=== PATIENT | female | born 1990 | race African-American/Black ===

== ENCOUNTER → 2020-03-11 | Outpatient (CLI) | payer MEDICAID ==
--- NOTE | 2020-03-11 15:00 | RADIOLOGY REPORT (SQ) ---
EXAM DESCRIPTION: U/S [id number] TRNABD 1GES W/ODOP IMAGES COMPLETED DATE/TIME: 03/11/2020 1:15 pm REASON FOR STUDY: ENCTR FOR SUPERVISION OF OTHER NORMAL , 1ST TRIMESTER (Z34.81) Z34.81 EN COUNTER FOR SUPRVSN OF NORMAL , FIRST TRIM COMPARISON: None. TECHNIQUE: Transabdominal static and realtime grayscale images acquired of the pelvis. Additional se lected spectral and color Doppler images recorded. All images [facility] PAC[facility]. [facility] available. CLINICAL DATES: LMP 12/26/2019. WILDA based on LMP 10/01/2020. EGA based on LMP 10 weeks 6 days LIMITATIONS: None. FINDINGS: FETUS: Single Living intrauterine . ULTRASOUND EGA: 11 weeks 0 days. ULTRASOUND WILDA: 09/30/2020. CRL: 4.1 cm FHR: 163 beats per minute. SURVEY: Too early to assess. AMNIOTIC FLUID: Toe early to assess. PLACENTA: Too early to assess. SUBCHORIONIC BLEED: Yes. SIZE OF BLEED: 1.5 x 0.6 x 0.3 cm. UTERUS: The uterus measures 9.4 x 8.4 x 7 cm. CERVICAL LENGTH: 2.2 cm. Closed. RIGHT ADNEXA: The right ovary measures 4 x 2.8 x 3.1 cm and on Doppler there is intact color flow wit hin the ovarian stroma. LEFT ADNEXA: The left ovary measures 2.4 x 2.4 x 2.5 cm and on color Doppler there is intact color fl ow within the ovarian stroma. FREE FLUID: None. OTHER: No other finding. IMPRESSION: LIVE INTRAUTERINE . EGA 10 weeks 6 days based on the LMP with concordant biometric parameters. MINISCULE SUBCHORIONIC HEMORRHAGE THAT MEASURES 1.5 x 0.6 x 0.3 cm. Trimester of : First trimester - 0 to 13 weeks. TECHNICAL DOCUMENTATION: JOB ID: [id number] 2010 [employer]- All Rights Reserved rev Reading location - IP/workstation name: [email or web address]
== END ==
LOC: RAD 12:46
PROVIDERS: ATTEND Midwife
DX: O20.9 Hemorrhage in early pregnancy, unspecified (principal); Z3A.10 10 weeks gestation of pregnancy
CPT/HCPCS: 76801

== ENCOUNTER 2020-08-14 15:53 | Inpatient (IN) | payer MEDICAID ==
[~2020-08-14 15:53] MED LIST: SUCCINYLCHOLINE CHLORIDE INJ 200 MG/10 ML VIAL ONE
[2020-08-14] MEDS ORDERED: NORMAL SALINE 250 ML IV PRN (15:56)
[2020-08-14] MEDS ORDERED: SUCCINYLCHOLINE CHLORIDE INJ 200 MG/10 ML VIAL ONE (16:18)
[2020-08-14] MEDS ORDERED: PROPOFOL INJ 200 MG/20 ML VIAL IV ONE (16:18)
[2020-08-14] MEDS ORDERED: CITRIC ACID/SODIUM CITRATE ORAL SOLN 15 ML UDCUP ONE (16:18)
[2020-08-14] MEDS ORDERED: FENTANYL CITRATE INJ/PF 100 MCG/2 ML AMPUL ONE ×2 (16:18→19:46)
[2020-08-14] MEDS ORDERED: CEFAZOLIN 2 GM/D5W RTU 2 GM/50 ML RTUPB IV ONE (16:19)
[2020-08-14] MEDS ORDERED: MISOPROSTOL 0.2 MG TABLET ONE ×2 (16:35→18:54)
[2020-08-14] MEDS ORDERED: CARBOPROST TROMETHAMINE INJ 250 MCG/1 ML AMPULE ONE ×2 (16:36→18:55)
[2020-08-14] MEDS ORDERED: OXYTOCIN/0.9 % SODIUM CHLORIDE 30 UNIT/500 ML RTUINJ ONE (16:36)
[2020-08-14] MEDS ORDERED: METHYLERGONOVINE MALEATE INJ/PF 0.2 MG/1 ML AMPULE ONE ×2 (16:36→18:55)
[2020-08-14] MEDS ORDERED: KETOROLAC TROMETHAMINE 60 MG/2 ML SDV ONE (16:45)
[2020-08-14] MEDS ORDERED: ONDANSETRON HCL INJ/PF 4 MG/2 ML SDV ONE (16:45)
[2020-08-14] MEDS ORDERED: OXYTOCIN 10 UNIT/ML VIAL ONE (16:46)
--- NOTE | 2020-08-14 16:53 | RADIOLOGY REPORT (SQ) ---
EXAM DESCRIPTION: U/S OB LIMITED IMAGES COMPLETED DATE/TIME: 08/14/2020 4:34 pm REASON FOR STUDY: possible placental abruption no heart tones COMPARISON: 03/11/2020 TECHNIQUE: Limited transabdominal grayscale ultrasound for evaluation of specific requested obstetri patricia parameters. LIMITATIONS: None. FINDINGS: Limited Ob ultrasound performed. No heart activity could be demonstrated. Very het erogeneous material between the placenta or within the placenta and fetus. Oligohydramnios. IMPRESSION: No heart tones could be identified. Findings are consistent with demise. [facility] was aware of the findings. Trimester of : Third trimester - 28 weeks to delivery. TECHNICAL DOCUMENTATION: JOB ID: [id number] 2010 [employer]- All Rights Reserved Reading location - IP/workstation name: [email or web address]
[2020-08-14 16:54] LABS: ALBUMIN 3.8 g/dL (3.5-5.0); ALKALINE PHOSPHATASE 169 U/L (38-126); ANION GAP 12 (5-19); ASPARTATE AMINO TRANSFERASE 77 U/L (14-36); BILIRUBIN,DIRECT 0.7 mg/dL (0.0-0.4); BILIRUBIN,TOTAL 4.8 mg/dL (0.2-1.3); BLOOD UREA NITROGEN 14 mg/dL (7-20); CALCIUM 9.5 mg/dL (8.4-10.2); CARBON DIOXIDE 17 mmol/L (22-30); CHLORIDE 106 mmol/L (98-107); GLUCOSE 95 mg/dL (75-110); POTASSIUM 4.7 mmol/L (3.6-5.0); URIC ACID 5.1 mg/dL (2.5-6.2)
[2020-08-14 17:09] LABS: APPEARANCE,URINE CLOUDY; BILIRUBIN,URINE NEGATIVE (NEGATIVE); COLOR,URINE RED; GLUCOSE, URINE 50 mg/dL (NEGATIVE); KETONES,URINE NEGATIVE (NEGATIVE); LEUKOCYTE ESTERASE,URINE NEGATIVE (NEGATIVE); NITRITE,URINE NEGATIVE (NEGATIVE); PROTEIN,URINE 100 mg/dL (NEGATIVE); URINE SPECIFIC GRAVITY 1.027; UROBILINOGEN,URINE NEGATIVE mg/dL (<2.0)
[2020-08-14 17:11] LABS: URINE AMPHETAMINES SCREEN NEGATIVE; URINE BENZODIAZEPINES SCREEN NEGATIVE; URINE COCAINE SCREEN NEGATIVE; URINE METHADONE SCREEN NEGATIVE; URINE PHENCYCLIDINE SCREEN NEGATIVE
[2020-08-14 17:14] LABS: URINE BARBITURATES SCREEN UNCONFIRMED POSITIVE; URINE MARIJUANA (THC) SCREEN UNCONFIRMED POSITIVE
[2020-08-14] MEDS ORDERED: MAGNESIUM SULFATE 4 GM/100 ML RTUPB IV ONE (17:19)
[2020-08-14] MEDS ORDERED: MAGNESIUM SULFATE 0 GM/0 ML RTUINJ IV ONE (17:19)
[2020-08-14 17:44] LABS: FIBRINOGEN 740 mg/dL (209-497); INTERNATIONAL RATION (INR) 3.52
[2020-08-14 17:45] LABS: HEMATOCRIT 17.2 % (36.0-47.0); MEAN CORPUSCULAR HEMOGLOBIN 33.2 pg (27.0-33.4); MEAN CORPUSCULAR HGB CONC 34.4 g/dL (32.0-36.0); MEAN CORPUSCULAR VOLUME 97 fl (80-97); PARTIAL THROMBOPLASTIN TIME 47.9 SEC (23.5-35.8); RED BLOOD COUNT 1.78 10^6/uL (3.72-5.28); RED CELL DISTRIBUTION WIDTH 13.3 % (11.5-14.0); WHITE BLOOD COUNT 19.9 10^3/uL (4.0-10.5)
--- NOTE | 2020-08-14 17:47 | Admission Physical ---
Datetime Report Generated by CPN: 08/14/2020 17:47 CURRENT ADMISSION Chief Complaint: Uterine Contractions; Vaginal Bleeding Indication for Induction: Not Applicable Admit Impression : , Intrauterine ; Primary Section; Demise; Obstetrical Complication; Medical Complication Admit Impression- Other: placental abruption Admit Plan: Admit to Unit; Initiate Section Protocol; Initiate Demise Protocol PHYSICAL EXAM General: Normal Heart: Normal Lungs: Normal Extremities: Normal DTRs: Normal Pelvic Type: Adequate Vital Signs: Reviewed Details Vital Signs: severe range FETUS A Monitoring: External US Admit Comment: 30yo @ 33w1d who presented to L_D via wheelchair from ED. Pt reports abdominal cramping this am which later turned into evan vaginal bleeding. Pt is A pos, RI, GBS unknown with uncomplicated except for hx of pre-e with last baby. Pt had baseline labs at transfer visit which were normal and also had repeat PIH labs on 08/06/20 when she presented to clinic for MITALI and had elevated BPs; those labs were also normal. On admission Dr. Browning was unable to obtain heart tones and stat sono was ordered which confirmed the demise. Heavy bleeding continued and the decision was made to perform a STAT . INFORMED CONSENT Assignment: Jacqueline Browning MD Signature: with User ID: Yuan : with User ID: [email or web address]
[2020-08-14] MEDS ORDERED: DEXTROSE 50%-WATER 25 GM/50 ML DISP.SYRIN IV PRN ×2 (17:56)
[2020-08-14] MEDS ORDERED: DEXTROSE 40% GEL 15 GM TUBE PO PRN ×2 (17:56)
[2020-08-14] MEDS ORDERED: DIPH/PERTUSS(ACELL)/TETANUS VAC/PF 0.5 ML SYR (>=10YO) IM PRN (17:56)
[2020-08-14] MEDS ORDERED: OXYCODONE-ACETAMINOPHEN 5-325 MG TABLET PO PRN ×2 (17:56)
[2020-08-14] MEDS ORDERED: ACETAMINOPHEN 1,000 MG/100 ML RTUPB IV PRN (17:56)
[2020-08-14] MEDS ORDERED: ACETAMINOPHEN 325 MG TABLET PO PRN (17:56)
[2020-08-14] MEDS ORDERED: RINGERS SOLUTION,LACTATED 1,000 ML IV PRN (17:56)
[2020-08-14] MEDS ORDERED: GLUCAGON,HUMAN RECOMB 1 MG INJ SUBCUT PRN (17:56)
[2020-08-14] MEDS ORDERED: SIMETHICONE 80 MG TAB.CHEW PO PRN (17:56)
[2020-08-14] MEDS ORDERED: PROMETHAZINE HCL INJ 25 MG/1 ML VIAL IV PRN (17:56)
[2020-08-14] MEDS ORDERED: MEASLES,MUMPS&RUBELLA VACC/PF 0.5 ML VIAL SUBCUT PRN (17:56)
[2020-08-14] MEDS ORDERED: OXYTOCIN/0.9 % SODIUM CHLORIDE 30 UNIT/500 ML RTUINJ IV PRN (17:56)
[2020-08-14] MEDS ORDERED: DOCUSATE SODIUM 100 MG CAPSULE PO SCH (18:00)
[2020-08-14 18:05] LABS: PLATELET COUNT 67 10^3/uL (150-450)
[2020-08-14] MEDS ORDERED: PHENYLEPHRINE HCL INJ/PF 10 MG/1 ML SDV ONE (18:23)
[2020-08-14] MEDS ORDERED: CALCIUM GLUC IN NACL ISO OSM IV ONE (18:32)
[2020-08-14] MEDS ORDERED: TRANEXAMIC ACID INJ/PF 1,000 MG/10 ML SDV ONE ×2 (18:52→18:55)
[2020-08-14 19:02] LABS: ABSOLUTE LYMPHOCYTES# (MANUAL) 1.6 10^3/uL (0.5-4.7); ABSOLUTE MONOCYTES # (MANUAL) 0.6 10^3/uL (0.1-1.4); BASOPHILS % (MANUAL) 0 % (0-2); EOSINOPHILS % (MANUAL) 0 % (0-6); LYMPHOCYTES % (MANUAL) 8 % (13-45); MONOCYTES % (MANUAL) 3 % (3-13); SEGMENTED NEUTROPHILS % (MAN) 89 % (42-78); TOTAL CELLS COUNTED 100
[2020-08-14 19:04] LABS: BURR CELLS SLIGHT; OVALOCYTES SLIGHT; POIKILOCYTOSIS SLIGHT; POLYCHROMASIA SLIGHT; SCHISTOCYTES SLIGHT; TOXIC GRANULATION SLIGHT
[2020-08-14 19:05] LABS: HEMOGLOBIN 5.9 g/dL (12.0-15.5); PLATELET COMMENT DECREASED; TEAR DROP CELLS SLIGHT
[2020-08-14 19:09] LABS: D-DIMER > 20.00 ug/mL (0.00-0.50)
[2020-08-14 19:18] LABS: ARTERIAL BLOOD BASE EXCESS -21.1 mmol/L; ARTERIAL BLOOD FIO2 6L; ARTERIAL BLOOD H2CO3 1.17 mmol/L (1.05-1.35); ARTERIAL BLOOD HCO3 9.1 mmol/L (20-24); ARTERIAL BLOOD O2 SATURATION 39.9 % (94-98); ARTERIAL BLOOD PCO2 38.9 mmHg (35-45); ARTERIAL BLOOD PH 6.99 (7.35-7.45); ARTERIAL BLOOD TOTAL CO2 10.3 mmol/L (21-25)
[2020-08-14] MEDS ORDERED: SODIUM BICARBONATE 8.4% INJ 50 MEQ/50 ML DISP.SYRIN ONE ×2 (19:20→19:21)
[2020-08-14] MEDS ORDERED: FENTANYL CITRATE INJ/PF 100 MCG/2 ML AMPUL IV ONE (19:45)
[2020-08-14] MEDS ORDERED: NORMAL SALINE 1000 ML 1,000 ML IV PRN (19:50)
[2020-08-14 19:54] LABS: MEAN CORPUSCULAR HEMOGLOBIN 30.1 pg (27.0-33.4); PLATELET COUNT 119 10^3/uL (150-450); RED CELL DISTRIBUTION WIDTH 14.5 % (11.5-14.0); WHITE BLOOD COUNT 19.5 10^3/uL (4.0-10.5)
--- NOTE | 2020-08-14 20:04 | Operative Report ---
Bedside Procedure - History of Present Illness Indication for Procedure: DIC requiring rapid transfusion Provider: CONNER HERMOSILLO - Central Line Right Internal jugular Time completed: 19:15 Consent obtained: No - medical emergency Central line pre-insertion: Sterile PPE donned, Chloraprep applied, Sterile drapes applied Central line size (Fr.): 7 Central line lumen type: Triple Anesthetic type: 1% Lidocaine mL's of anesthesia: 2 Ultrasound guided: Yes Line secured with sutures: Yes Central line post-insertion: Blood return from lumens, Biopatch applied, Sutured, Sterile dressing applied, Position confirmed w/ CXR Number of attempts: 1 Complications: No
[2020-08-14 20:06] LABS: HEMOGLOBIN 10.6 g/dL (12.0-15.5); MEAN CORPUSCULAR VOLUME 91 fl (80-97)
[2020-08-14 20:12] LABS: ABSOLUTE LYMPHOCYTES# (MANUAL) 4.3 10^3/uL (0.5-4.7); BAND NEUTROPHILS % (MANUAL) 6 % (3-5); BASOPHILS % (MANUAL) 0 % (0-2); EOSINOPHILS % (MANUAL) 0 % (0-6); LYMPHOCYTES % (MANUAL) 22 % (13-45); MONOCYTES % (MANUAL) 10 % (3-13); NUCLEATED RED BLOOD CELLS 1 /100 WBC (0); SEGMENTED NEUTROPHILS % (MAN) 62 % (42-78); TOTAL CELLS COUNTED 100
[2020-08-14 20:16] LABS: ANISOCYTOSIS SLIGHT; BURR CELLS 1+; PLATELET COMMENT DECREASED; TEAR DROP CELLS SLIGHT
--- NOTE | 2020-08-14 20:16 | RADIOLOGY REPORT (SQ) ---
EXAM DESCRIPTION: XR CHEST 1 VIEW COMPLETED DATE/TME: 08/14/2020 00:00 CLINICAL HISTORY: 30 years Female central line placement COMPARISON: None. FINDINGS: The cardiomediastinal silhouette appears unremarkable. No consolidating infiltrates or pleural effusions. No pneumothorax. Right IJ catheter with the tip extending into the right atrium. This should be withdrawn withdrawn 2 to 3 cm for more adequate positioning. No pneumothorax is appreciated. IMPRESSION: Placement of a right IJ central venous line which extends into the right atrium. This needs to be withdrawn at least 2 to 3 cm for more optimal positioning
[2020-08-14 20:17] LABS: POLYCHROMASIA SLIGHT
[2020-08-14 20:18] LABS: POIKILOCYTOSIS SLIGHT
[2020-08-14 20:45] LABS: HEMATOCRIT 36.7 % (36.0-47.0); HEMOGLOBIN 12.5 g/dL (12.0-15.5); MEAN CORPUSCULAR HEMOGLOBIN 30.1 pg (27.0-33.4); MEAN CORPUSCULAR HGB CONC 34.1 g/dL (32.0-36.0); MEAN CORPUSCULAR VOLUME 88 fl (80-97); PLATELET COUNT 123 10^3/uL (150-450); RED BLOOD COUNT 4.15 10^6/uL (3.72-5.28); RED CELL DISTRIBUTION WIDTH 14.3 % (11.5-14.0); WHITE BLOOD COUNT 18.8 10^3/uL (4.0-10.5)
[2020-08-14 20:52] LABS: FIBRINOGEN 155 mg/dL (209-497)
[2020-08-14 21:10] LABS: ALBUMIN 3.1 g/dL (3.5-5.0); ALKALINE PHOSPHATASE 81 U/L (38-126); ANION GAP 13 (5-19); ASPARTATE AMINO TRANSFERASE 60 U/L (14-36); BILIRUBIN,DIRECT 2.5 mg/dL (0.0-0.4); BILIRUBIN,TOTAL 4.6 mg/dL (0.2-1.3); BLOOD UREA NITROGEN 14 mg/dL (7-20); CALCIUM 8.1 mg/dL (8.4-10.2); CARBON DIOXIDE 20 mmol/L (22-30); CHLORIDE 108 mmol/L (98-107); GLUCOSE 172 mg/dL (75-110); TOTAL PROTEIN 5.5 g/dL (6.3-8.2)
[2020-08-14 21:11] LABS: ABSOLUTE LYMPHOCYTES# (MANUAL) 1.3 10^3/uL (0.5-4.7); ABSOLUTE MONOCYTES # (MANUAL) 1.1 10^3/uL (0.1-1.4); BAND NEUTROPHILS % (MANUAL) 5 % (3-5); BASOPHILS % (MANUAL) 0 % (0-2); EOSINOPHILS % (MANUAL) 0 % (0-6); LYMPHOCYTES % (MANUAL) 7 % (13-45); MONOCYTES % (MANUAL) 6 % (3-13); SEGMENTED NEUTROPHILS % (MAN) 82 % (42-78); TOTAL CELLS COUNTED 100
[2020-08-14 21:13] LABS: ANISOCYTOSIS SLIGHT; BURR CELLS 1+; OVALOCYTES SLIGHT; PLATELET COMMENT DECREASED; TEAR DROP CELLS SLIGHT
[2020-08-14 21:16] LABS: POTASSIUM 5.8 mmol/L (3.6-5.0)
[2020-08-14 21:16] LABS: PARTIAL THROMBOPLASTIN TIME 82.7 SEC (23.5-35.8)
[2020-08-14 21:27] LABS: INTERNATIONAL RATION (INR) 1.23
[2020-08-14 21:28] LABS: PROTHROMBIN TIME 15.6 SEC (11.4-15.4)
[2020-08-14] MEDS ORDERED: CEFAZOLIN 1 GM/D5W RTU 1 GM/50 ML RTUPB IV SCH (22:00)
[2020-08-14 22:04] LABS: D-DIMER > 20.00 ug/mL (0.00-0.50)
[2020-08-14 22:14] VITALS: BP 119/82
--- NOTE | 2020-08-14 23:04 | Operative Report ---
Operative Report DATE OF SURGERY: 08/14/20 PREOPERATIVE DIAGNOSIS: Placental abrubtion. 32 weeks EGA Intrauterine pregnan cy-demise noted on admission. Elevated blood pressures on admisssion in severe range, possible Severe Preeclampsia. History of preeclampsia in G1 POSTOPERATIVE DIAGNOSIS: Same as above OPERATION: Primary section SURGEON: CHARLES PERRIN ANESTHESIA: GA TISSUE REMOVED OR ALTERED: Placenta, non-viable fetus COMPLICATIONS: No surgical complications ESTIMATED BLOOD LOSS: 2,000cc including dark clots in uterus and blood under patient QUANTITATIVE BLOOD LOSS: 2,170 INTRAOPERATIVE FINDINGS: Blood tinged serous fluid perineal fluid. Large amount of dark clotted blood in uterus. Couvelaire uterus noted PROCEDURE: IV fluids: per anesthesia record Urinary output: 50 cc of blood tinged urine (Urine was blood tinged with ziegler placed prior to OR) Findings: Blood tinged peritoneal fluid noted on opening the peritoneum. Large dark blood clots noted and active bleeding on hysterotomy incision. Placenta loose and coming out prior to infants head. INfant was vertex and non-viable. Baby had nuchal x1, delivered and handed off. Uterus had appearance of Coulevaire uterus with blue/black color. NOrmal bilateral fallopian tubes and ovaries. Position: To recovery room in stable Description of procedure: The patient was taken to the operating room and general anesthesia was administered and found to be adequate. She was then placed on the OR table in the supine position. Patient was prepped with betadine and draped in usual sterile fashion. Ancef 2 gms was given IV prior to the procedure for infection prophylaxis. Timeout was taken. A Pfannenstiel skin incision was then made approximately 3 cm above the pubic symphysis and carried down to level the rectus fascia. The rectus fascia was then nicked in the midline with a scalpel and the fascial incision was extended laterally with use of curved Oneil scissors. The rectus fascia was then grasped with 2 Kocker clamps elevated and the underlying rectus muscle was dissected off both bluntly and sharply. The rectus muscles were then split in the midline and the peritoneum was entered. The peritoneal incision was then extended by manually stretching the peritoneum. Blood tinged fluid noted. The bladder blade was positioned. The bladder was noted to be out of harm's way. A scalpel was then used in the lower uterine for the hysterotomy, and large dark clots, detached placenta were noted on entry. The uterine incision was then manually stretched. The infant was noted to be in vertex postion and delivered with minmal difficulty. The shoulders and the rest of the body followed immediately. The cord was cut clamped and the was handed off to the nurse awaiting. was non-viable. The placenta was manually delivered. Using a lap gauze the uterus was cleared of all clots and debris. Uterine atony encountered and Pitocin given along with Methergine IM injected into myometrium. The uterus was then exteriorized and a bladder blade was repositioned. The uterine incision was then closed with 0 Chromic suture in a running locked fashion. A second layer of the same suture was used in a running locked imbricated fashion. The uterine incision was inspected and oozing centrally. A box stitch x2 was placed. Hemostasis obtained. The uterus was returned to its normal anatomic position within the abdominal cavity. Warm saline irrigation was used to clear all clots and debris from the abdomen. The uterine incision was inspected once more and noted to remain hemostatic. The bladder blade was removed and the peritoneum was closed with 2-0 chromic in a running fashion. The rectus muscles were then reapproximated and the rectus fascia was closed with a #0 Looped PDS in a running fashion. The subcutaneous tissue was then inspected and during this oozing was noted between the sutures and the rectus fascia near the midline this appeared to be thin dark blood coming from below the fascia. Because of this the fascia was reopened along with the peritoneum. Dark thin blood was noted but no active bleeding could be found. The uterine incision did appear oozy intermittently and because of this a Gelfoam was placed over the uterine incision. This obtained hemostasis. The rectus muscles and remaining tissue inspected and no active bleeding noted. The rectus fascia was then closed again with 0 looped PDS in a running fashion. The subcutaneous tissue was then closed with 2-0 Plain Gut suture in a running fashion. The skin was then closed with 4-0 Monocryl in a running subcuticular fashion. The skin incision was then clean dried and Steri- Strips were applied over the skin incision. A pressure dressing with dry gauze was applied. The drape was taken down at the end of the procedure blood was noted between the patient's legs to the level of her ankles on the pads beneath her. Uterine massage was done and approximately 30 cc of blood was noted. No further trickling after fundal rub. At this time total blood loss was estimated at 2 liters and two units PRBC were ordered: anesthesia to administer. Vital signs stable at this time. All instrument sponge and needle counts were correct x3 for the procedure the patient tolerated the procedure well. She will proceed to recovery room in stable condition
--- NOTE | 2020-08-14 23:30 | PDOC DELIVERY SUMMARY ---
Delivery Summary - Maternal Hx : II Hx Para: I Hx # Term Pregnancies: 0 Hx # Pregnancies: 1 Hx Total # of Abortions (Sponateous & Elective): 0 Number of Living Children: 1 Gestational Age: 32 weeks Risk Factors: Other - History of preeclampsia in G1 Elevated b/p x1 in office and PIH labs negative on 08/06/2020 Intrapartum: Abruption - Likely preeclampsia - Delivery Presentation: Vertex Heart Rate Monitoring: Externally - NO heart tones: Non-viability verifed by BSUS Support Person Present: Yes Location: OR : Emergency Placenta: Abnormal Placenta Description: Abruption with large portion of placenta abrupted-90%. Large amount of dark clotted blood around uterus Nuchal Cord: Yes - x1 Estimated Blood Loss: 2,000 Delivery Quantitative Blood Loss (QBL): 2,170 - Medications Type of Anesthesia:: GA - Delivery Medications Delivery Meds: Methergine 0.2mg IM - Given in myometrium, Pitocin 60 units given IV and cytotec per rectum after procedure finished - Delivery Personnel RN: ANDREEA VARGAS MD: CHARLES PERRIN
--- NOTE | 2020-08-15 03:22 | CRITICAL CARE ADMISSION REPORT ---
HPI Date:: 08/14/20 Time:: 19:00 Reason for ICU Reason:: post op hemorrhage Admission Date/Time & PCP: Admission Date/Time: 08/14/20 15:56 Primary Care Provider: MAGAN ORDONEZ MD HPI: 30 year old female who was 32 weeks and presented to [facility] labor and delivery with vaginal bleeding and pain. The patient was found to have an abruption and an emergency was performed by Dr. Browning. The patient began to hemorrhage post operatively and was transferred to the ICU. - Diagnosis/Plan (1) Abruptio placenta Qualifiers: Trimester: third trimester Qualified Code(s): O45.93 - Premature separation of placenta, unspecified, third trimester Is this a current diagnosis for this admission?: Yes (2) deliv NOS-unsp Is this a current diagnosis for this admission?: Yes (3) Hemorrhage Is this a current diagnosis for this admission?: Yes Past Medical History Medical History: None Cardiac Medical History: Reports: None Pulmonary Medical History: Reports: None EENT Medical History: Reports: None Neurological Medical History: Reports: None Endocrine Medical History: Reports: None Renal/ Medical History: Reports: None Malignancy Medical History: Reports: None GI Medical History: Reports: None Musculoskeltal Medical History: Reports: None Skin Medical History: Reports: None Psychiatric Medical History: Reports: None Traumatic Medical History: Reports: None Hematology: Reports: None Past Surgical History Past Surgical History: Reports: None Social/Family History - Social History Social History Note: 30 year old female who lives with her family denies any alcohol, tobacco use, or ilicit drug use. Lives with: Family Smoking Status: Unknown if Ever Smoked Hx Recreational Drug Use: No - Family History Family History: None - Medication/Allergies Home Medications: No122/Iron/Folic Acid [ Multi Tablet] 1 each PO DAILY 08/14/20 Allergies/Adverse Reactions: doxycycline Allergy (Verified 08/14/20 19:57) Review of Systems ROS unobtainable: Due to mental status Physical Exam Vital Signs: Temp Pulse Resp BP Pulse Ox 134 H 16 119/82 100 08/14/20 18:39 08/14/20 22:01 08/14/20 22:01 08/14/20 22:01 Intake & Output 08/13/20 08/14/20 08/15/20 06:59 06:59 06:59 Weight 63.7 kg Weight/Height Weight 63.7 kg Height 5 ft 2 in General appearance: PRESENT: severe distress, well-developed, well-nourished Head exam: PRESENT: atraumatic, normocephalic Eye exam: PRESENT: other. ABSENT: PERRLA Ear exam: PRESENT: TM's normal bilaterally Mouth exam: PRESENT: moist Teeth exam: PRESENT: other - teeth intact Throat exam: ABSENT: post pharyngeal erythema, tonsillar erythema, tonsillar exudate, tonsillogmegaly, other Neck exam: PRESENT: carotid bruit, JVD Respiratory exam: PRESENT: decreased breath sounds, tachypnea Cardiovascular exam: PRESENT: +S1, +S2 Pulses: PRESENT: normal carotid pulses, normal radial pulses GI/Abdominal exam: PRESENT: ascites Rectal exam: PRESENT: deferred, black stool Gentrourinary exam: PRESENT: indwelling catheter Extremities exam: ABSENT: calf tenderness, clubbing, full ROM, joint swelling, pedal edema, tenderness, +1 edema, +2 edema, other Musculoskeletal exam: PRESENT: ambulatory Neurological exam: PRESENT: alert, awake Psychiatric exam: PRESENT: anxious Skin exam: ABSENT: abrasion, cyanosis, dry, erythema, intact, jaundice, mottled, normal color, pallor, petechiae, rash, skin tears, urticaria, vesicles, warm, other Laboratory/Radiographs Laboratory Results: 08/14/20 20:15 08/14/20 20:15 08/14/20 08/14/20 08/14/20 16:25 16:26 16:26 WBC Cancelled RBC Cancelled Hgb Cancelled Hct Cancelled MCV Cancelled MCH Cancelled MCHC Cancelled RDW Cancelled Plt Count Cancelled Seg Neutrophils % Cancelled Carbonic Acid HCO3/H2CO3 Ratio ABG pH ABG pCO2 ABG pO2 ABG HCO3 ABG O2 Saturation ABG Base Excess VBG pH VBG pCO2 VBG HCO3 VBG Base Excess FiO2 Sodium Potassium Chloride Carbon Dioxide Anion Gap BUN Creatinine Est GFR ( Amer) Glucose Uric Acid Calcium Magnesium Total Bilirubin AST Alkaline Phosphatase Total Protein Albumin Urine Color RED Urine Appearance CLOUDY Urine pH 5.0 Ur Specific Napoleon 1.027 Urine Protein 100 H Urine Glucose (UA) 50 H Urine Ketones NEGATIVE Urine Blood LARGE H Urine Nitrite NEGATIVE Ur Leukocyte Esterase NEGATIVE Blood Type A POSITIVE Antibody Screen NEGATIVE 08/14/20 08/14/2020 16:26 17:25 19:14 WBC 19.9 H RBC 1.78 L Hgb 5.9 L Hct 17.2 L MCV 97 MCH 33.2 MCHC 34.4 RDW 13.3 Plt Count 67 L Seg Neutrophils % Not Reportable Carbonic Acid 1.17 HCO3/H2CO3 Ratio 7:1 ABG pH 6.99 L* ABG pCO2 38.9 ABG pO2 34.0 L* ABG HCO3 9.1 L ABG O2 Saturation 39.9 L ABG Base Excess -21.1 VBG pH VBG pCO2 VBG HCO3 VBG Base Excess FiO2 6L Sodium 135.0 L Potassium 4.7 Chloride 106 Carbon Dioxide 17 L Anion Gap 12 BUN 14 Creatinine 1.37 H Est GFR ( Amer) 55 L Glucose 95 Uric Acid 5.1 Calcium 9.5 Magnesium Total Bilirubin 4.8 H AST 77 H Alkaline Phosphatase 169 H Total Protein 7.0 Albumin 3.8 Urine Color Urine Appearance Urine pH Ur Specific Napoleon Urine Protein Urine Glucose (UA) Urine Ketones Urine Blood Urine Nitrite Ur Leukocyte Esterase Blood Type Antibody Screen 08/14/20 08/14/20 08/14/20 19:33 20:15 20:15 WBC 19.5 H 18.8 H RBC 3.50 L 4.15 Hgb 10.6 L D 12.5 Hct 32.0 L 36.7 MCV 91 D 88 MCH 30.1 30.1 MCHC 33.0 34.1 RDW 14.5 H 14.3 H Plt Count 119 L 123 L Seg Neutrophils % Not Reportable Not Reportable Carbonic Acid HCO3/H2CO3 Ratio ABG pH ABG pCO2 ABG pO2 ABG HCO3 ABG O2 Saturation ABG Base Excess VBG pH Cancelled VBG pCO2 Cancelled VBG HCO3 Cancelled VBG Base Excess Cancelled FiO2 Sodium Potassium Chloride Carbon Dioxide Anion Gap BUN Creatinine Est GFR ( Amer) Glucose Uric Acid Calcium Magnesium Total Bilirubin AST Alkaline Phosphatase Total Protein Albumin Urine Color Urine Appearance Urine pH Ur Specific Napoleon Urine Protein Urine Glucose (UA) Urine Ketones Urine Blood Urine Nitrite Ur Leukocyte Esterase Blood Type Antibody Screen 08/14/20 20:15 WBC RBC Hgb Hct MCV MCH MCHC RDW Plt Count Seg Neutrophils % Carbonic Acid HCO3/H2CO3 Ratio ABG pH ABG pCO2 ABG pO2 ABG HCO3 ABG O2 Saturation ABG Base Excess VBG pH VBG pCO2 VBG HCO3 VBG Base Excess FiO2 Sodium 140.5 Potassium 5.8 H D Chloride 108 H Carbon Dioxide 20 L Anion Gap 13 BUN 14 Creatinine 1.09 Est GFR ( Amer) > 60 Glucose 172 H Uric Acid Calcium 8.1 L Magnesium 1.5 L Total Bilirubin 4.6 H AST 60 H Alkaline Phosphatase 81 Total Protein 5.5 L Albumin 3.1 L Urine Color Urine Appearance Urine pH Ur Specific Napoleon Urine Protein Urine Glucose (UA) Urine Ketones Urine Blood Urine Nitrite Ur Leukocyte Esterase Blood Type Antibody Screen Impressions: Chest X-Ray 08/14/20 00:00 IMPRESSION: Placement of a right IJ central venous line which extends into the right atrium. This needs to be withdrawn at least 2 to 3 cm for more optimal positioning Obstetrics Ultrasound 08/14/20 00:00 IMPRESSION: No heart tones could be identified. Findings are consistent with demise. Referring physician was aware of the findings. Trimester of : Third trimester - 28 weeks to delivery. Critical Time Critical Time (minutes): 45 -: The care of a critically ill patient is dynamic. This note represents a static moment in the admission process. Orders and treatments may be given simultaneously and urgently, and time is not sales representative of the treatment process. This patient requires Critical Care secondary to life threatening organ or limb dysfunction. Without Critical Care services, the patient is at risk for increased mortality and morbidity.
--- NOTE | 2020-08-15 05:29 | PDOC DISCHARGE SUMMARY ---
Impression - Admit/DC Date/PCP Admission Date/Primary Care Provider: 08/14/20 15:56 MAGAN ORDONEZ MD Discharge Date: 08/14/20 - Discharge Diagnosis (1) Abruptio placenta Is this a current diagnosis for this admission?: Yes (2) deliv NOS-unsp Is this a current diagnosis for this admission?: Yes (3) Hemorrhage Is this a current diagnosis for this admission?: Yes - Additional Information Resuscitation Status: Full Code Discharge Diet: As Tolerated Referrals: MAGAN ORDONEZ MD [Primary Care Provider] - Home Medications: No122/Iron/Folic Acid [ Multi Tablet] 1 each PO DAILY 08/14/20 History of Present Illiness History of Present Illness: 30 year old female who was 32 weeks and presented to [place] labor and delivery with vaginal bleeding and pain. The patient was found to have an abruption and an emergency was performed by Dr. Browning. The patient began to hemorrhage post operatively and was transferred to the ICU. Hospital Course Hospital Course: 30 year old female who was 32 weeks and presented to [facility] labor and delivery with vaginal bleeding and pain. The patient was found to have an abruption and an emergency was performed by Dr. Browning. The patient began to hemorrhage post operatively and was transferred to the ICU. The patient was stablized in the ICU and the EDUCATIONAL THERAPY TEACHER team felt it best that she be transferred to [facility] and Dr. Browning arranged the transfer with an accepting physician there. The patient was transferred at 2223 by ground transport. Physical Exam Vital Signs: Temp Pulse Resp BP Pulse Ox 134 H 22 H 119/82 100 08/14/20 18:39 08/14/20 22:13 08/14/20 22:01 08/14/20 22:01 Intake & Output 08/13/20 08/14/20 08/15/20 06:59 06:59 06:59 Weight 63.7 kg General appearance: PRESENT: mild distress Head exam: PRESENT: atraumatic, normocephalic Eye exam: PRESENT: EOMI, PERRLA Ear exam: PRESENT: normal external ear exam Mouth exam: PRESENT: dry mucosa Neck exam: PRESENT: full ROM. ABSENT: tracheal deviation Respiratory exam: PRESENT: symmetrical, unlabored Cardiovascular exam: PRESENT: +S1, +S2, tachycardia - rate 113 Pulses: PRESENT: normal carotid pulses, normal radial pulses Vascular exam: PRESENT: normal capillary refill GI/Abdominal exam: PRESENT: hypoactive bowel sounds, tenderness - post Rectal exam: PRESENT: deferred Gentrourinary exam: PRESENT: indwelling catheter Extremities exam: PRESENT: full ROM Musculoskeletal exam: PRESENT: full ROM Neurological exam: PRESENT: alert, oriented to person, oriented to place, oriented to time, oriented to situation, CN II-XII grossly intact Skin exam: PRESENT: dry, warm. ABSENT: rash Results Laboratory Results: WBC 18.8 10^3/uL (4.0-10.5) H 08/14/20 20:15 RBC 4.15 10^6/uL (3.72-5.28) 08/14/20 20:15 Hgb 12.5 g/dL (12.0-15.5) 08/14/20 20:15 Hct 36.7 % (36.0-47.0) 08/14/20 20:15 MCV 88 fl (80-97) 08/14/20 20:15 MCH 30.1 pg (27.0-33.4) 08/14/20 20:15 MCHC 34.1 g/dL (32.0-36.0) 08/14/20 20:15 RDW 14.3 % (11.5-14.0) H 08/14/20 20:15 Plt Count 123 10^3/uL (150-450) L 08/14/20 20:15 Lymph % (Auto) Not Reportable 08/14/20 20:15 [place] % (Auto) Not Reportable 08/14/20 20:15 Eos % (Auto) Not Reportable 08/14/20 20:15 Baso % (Auto) Not Reportable 08/14/20 20:15 Absolute Neuts (auto) Not Reportable 08/14/20 20:15 Absolute Lymphs (auto) Not Reportable 08/14/20 20:15 Absolute Monos (auto) Not Reportable 08/14/20 20:15 Absolute Eos (auto) Not Reportable 08/14/20 20:15 Absolute Basos (auto) Not Reportable 08/14/20 20:15 Total Counted 100 08/14/20 20:15 Seg Neutrophils % Not Reportable 08/14/20 20:15 Seg Neuts % (Manual) 82 % (42-78) H 08/14/20 20:15 Band Neutrophils % 5 % (3-5) 08/14/20 20:15 Lymphocytes % (Manual) 7 % (13-45) L 08/14/20 20:15 Monocytes % (Manual) 6 % (3-13) 08/14/20 20:15 Eosinophils % (Manual) 0 % (0-6) 08/14/20 20:15 Basophils % (Manual) 0 % (0-2) 08/14/20 20:15 Abs Neuts (Manual) 16.4 10^3/uL (1.7-8.2) H 08/14/20 20:15 Abs Lymphs (Manual) 1.3 10^3/uL (0.5-4.7) 08/14/20 20:15 Abs Monocytes (Manual) 1.1 10^3/uL (0.1-1.4) 08/14/20 20:15 Absolute Eos (Manual) 0.0 10^3/uL (0.0-0.6) 08/14/20 20:15 Abs Basophils (Manual) 0.0 10^3/uL (0.0-0.2) 08/14/20 20:15 Nucleated RBCs 1 /100 WBC (0) 08/14/20 19:33 Toxic Granulation SLIGHT 08/14/20 17:25 Platelet Estimate Cancelled 08/14/20 16:26 Platelet Comment DECREASED 08/14/20 20:15 Polychromasia SLIGHT 08/14/20 19:33 Poikilocytosis SLIGHT 08/14/20 19:33 Anisocytosis SLIGHT 08/14/20 20:15 Tear Drop Cells SLIGHT 08/14/20 20:15 Ovalocytes SLIGHT 08/14/20 20:15 Sofy Cells 1+ 08/14/20 20:15 Schistocytes SLIGHT 08/14/20 17:25 PT 15.6 SEC (11.4-15.4) H D 08/14/20 20:40 INR 1.23 08/14/20 20:40 INR (Anticoag Therapy) Cancelled 08/14/20 16:26 APTT 82.7 SEC (23.5-35.8) H 08/14/20 20:40 Fibrinogen 155 mg/dL (209-497) L 08/14/20 20:15 D-Dimer > 20.00 ug/mL (0.00-0.50) H* 08/14/20 20:15 Carbonic Acid 1.17 mmol/L (1.05-1.35) 08/14/20 19:14 HCO3/H2CO3 Ratio 7:1 08/14/20 19:14 ABG pH 6.99 (7.35-7.45) L* 08/14/20 19:14 ABG pCO2 38.9 mmHg (35-45) 08/14/20 19:14 ABG pO2 34.0 mmHg (80-100) L* 08/14/20 19:14 ABG HCO3 9.1 mmol/L (20-24) L 08/14/20 19:14 ABG Total CO2 10.3 mmol/L (21-25) L 08/14/20 19:14 ABG O2 Saturation 39.9 % (94-98) L 08/14/20 19:14 ABG Base Excess -21.1 mmol/L 08/14/20 19:14 VBG pH Cancelled 08/14/20 20:15 VBG pCO2 Cancelled 08/14/20 20:15 VBG HCO3 Cancelled 08/14/20 20:15 VBG Base Excess Cancelled 08/14/20 20:15 FiO2 6L 08/14/20 19:14 Sodium 140.5 mmol/L (137-145) 08/14/20 20:15 Potassium 5.8 mmol/L (3.6-5.0) H D 08/14/20 20:15 Chloride 108 mmol/L (98-107) H 08/14/20 20:15 Carbon Dioxide 20 mmol/L (22-30) L 08/14/20 20:15 Anion Gap 13 (5-19) 08/14/20 20:15 BUN 14 mg/dL (7-20) 08/14/20 20:15 Creatinine 1.09 mg/dL (0.52-1.25) 08/14/20 20:15 Est GFR ( Amer) > 60 (>60) 08/14/20 20:15 Est GFR (MDRD) Non-Af 59 (>60) L 08/14/20 20:15 Glucose 172 mg/dL (75-110) H 08/14/20 20:15 Uric Acid 5.1 mg/dL (2.5-6.2) 08/14/20 16:26 Calcium 8.1 mg/dL (8.4-10.2) L 08/14/20 20:15 Magnesium 1.5 mg/dL (1.6-2.3) L 08/14/20 20:15 Total Bilirubin 4.6 mg/dL (0.2-1.3) H 08/14/20 20:15 Direct Bilirubin 2.5 mg/dL (0.0-0.4) H 08/14/20 20:15 Neonat Total Bilirubin Not Reportable 08/14/20 20:15 Neonat Direct Bilirubin Not Reportable 08/14/20 20:15 Neonat Indirect Bili Not Reportable 08/14/20 20:15 AST 60 U/L (14-36) H 08/14/20 20:15 ALT 28 U/L (<35) 08/14/20 20:15 Alkaline Phosphatase 81 U/L (38-126) 08/14/20 20:15 Lactate Dehydrogenase 1278 U/L (120-246) H 08/14/20 16:26 Total Protein 5.5 g/dL (6.3-8.2) L 08/14/20 20:15 Albumin 3.1 g/dL (3.5-5.0) L 08/14/20 20:15 Urine Color RED 08/14/20 16:25 Urine Appearance CLOUDY 08/14/20 16:25 Urine pH 5.0 (5.0-9.0) 08/14/20 16:25 Ur Specific [place] 1.027 08/14/20 16:25 Urine Protein 100 mg/dL (NEGATIVE) H 08/14/20 16:25 Urine Glucose (UA) 50 mg/dL (NEGATIVE) H 08/14/20 16:25 Urine Ketones NEGATIVE mg/dL (NEGATIVE) 08/14/20 16:25 Urine Blood LARGE (NEGATIVE) H 08/14/20 16:25 Urine Nitrite NEGATIVE (NEGATIVE) 08/14/20 16:25 Urine Bilirubin NEGATIVE (NEGATIVE) 08/14/20 16:25 Urine Urobilinogen NEGATIVE mg/dL (<2.0) 08/14/20 16:25 Ur Leukocyte Esterase NEGATIVE (NEGATIVE) 08/14/20 16:25 Urine Ascorbic Acid NEGATIVE (NEGATIVE) 08/14/20 16:25 Urine Opiates Screen NEGATIVE 08/14/20 16:25 Urine Methadone Screen NEGATIVE 08/14/20 16:25 Ur Barbiturates Screen UNCONFIRMED POSITIVE 08/14/20 16:25 Ur Phencyclidine Scrn NEGATIVE 08/14/20 16:25 Ur Amphetamines Screen NEGATIVE 08/14/20 16:25 U Benzodiazepines Scrn NEGATIVE 08/14/20 16:25 Urine Cocaine Screen NEGATIVE 08/14/20 16:25 U Marijuana (THC) Screen UNCONFIRMED POSITIVE 08/14/20 16:25 Slides for Path Review Cancelled 08/14/20 16:26 Blood Type A POSITIVE 08/14/20 16:26 Blood Type Confirm A POSITIVE 08/14/20 16:27 Antibody Screen NEGATIVE 08/14/20 16:26 Crossmatch See Detail 08/14/20 16:26 Mass Transfus Initiated MTP INITIATED 08/14/20 18:14 Mass Transfus Discontin MTP DISCONTINUED 08/14/20 18:14 Impressions: Chest X-Ray 08/14/20 00:00 IMPRESSION: Placement of a right IJ central venous line which extends into the right atrium. This needs to be withdrawn at least 2 to 3 cm for more optimal positioning Obstetrics Ultrasound 08/14/20 00:00 IMPRESSION: No heart tones could be identified. Findings are consistent with demise. Referring physician was aware of the findings. Trimester of : Third trimester - 28 weeks to delivery. Plan Critical Time: 55 Level of Care: ICU Stroke Is this a Stroke Patient?: No Acute Heart Failure Is this a Heart Failure Patient?: No
[2020-08-15] MEDS ORDERED: SODIUM BICARBONATE 8.4% INJ 50 MEQ/50 ML DISP.SYRIN IV ONE (05:42)
[2020-08-15] MEDS ORDERED: DEXTROSE 5%-WATER 1000 ML 1,000 ML with SODIUM BICARBONATE 150 MEQ IV PRN ×2 (05:43)
[2020-08-15] MEDS ORDERED: PRENATAL VITAMIN W DHA CAPSULE PO SCH (10:00)
[2020-08-15] MEDS ORDERED: NORMAL SALINE 1000 ML 1,000 ML IV ONE (19:10)
--- NOTE | 2020-08-19 01:07 | Delivery Summary ---
Del Sum A-C Datetime Report Generated by CPN: 08/19/2020 01:07 DELIVERY PERSONNEL DELIVERY PERSONNEL: [id number] Delivery Doctor:: Jacqueline Browning MD (Annotations: Data stored by CPN on behalf of user) CARD FOLDER:: Rozina Villavicencio CRNA Labor and Delivery Nurse:: Re Krishna RN School Psychologist:: Lester Levy RN (Annotations: Data stored by CPN on behalf of user) Floor Framer/MEAT CURER: ST Brissa (Annotations: Data stored by CPN on behalf of user) Floor Framer/MEAT CURER: Shyanne Jay CST (Annotations: Data stored by CPN on behalf of user) Additional Personnel: : LALO Sotelo, Josep,XIAO and XIAO Benson MATERNAL INFORMATION Delivery Anesthesia: General Medications After Delivery: Pitocin 30 Units in 500ml NS/D5W Delivery QBL Comment: 2169 mls see QBL record Maternal Complications: Abruptio Placenta; Hemorrhage LABOR SUMMARY EDC: 10/01/2020 00:00 No. Babies in Womb: 1 Attempted: No Labor Anesthesia: None LABOR INFORMATION Reason for Induction: Not Applicable Oxytocin: N/A Group B Beta Strep: Uknown Steroids Given: None Reason Steroids Not Administered: Not Applicable MEMBRANES Membranes Rupture Method: Artificial Rupture of Membranes: 08/14/2020 16:36 Length of Rupture (hr): 0.02 Amniotic Fluid Color: Bloody Amniotic Fluid Amount: Moderate Amniotic Fluid Odor: Normal STAGES OF LABOR Stage 3 hr: 0 Stage 3 min: 0 VAGINAL DELIVERY Episiotomy: None Laceration #1: None Sponge Count Correct: N/A Sharps Count Correct: N/A CSECTION DELIVERY Primary Indication: Abruptio Placenta CSection Urgency: Emergency CSection Incidence: Primary Labor: N/A Elective: N/A CSection Incision: Lower Uterine Transverse BABY A INFORMATION Delivery Date/Time: 08/14/2020 16:37 Method of Delivery: Born in Route : No : N/A Forceps: N/A Vacuum Extraction: N/A Shoulder Dystocia : No PRESENTATION/POSITION BABY A Presentation: Cephalic Cephalic Presentation: Vertex Breech Presentation: N/A PLACENTA INFORMATION BABY A Placenta Delivery Time : 08/14/2020 16:37 Placenta Method of Delivery: Manual Removal Placenta Status: Delivered INFORMATION BABY A Gestational Age at Delivery: 33.1 Gestational Status: - <34 Weeks Infant Outcome : Stillborn Infant Sex: Male CORD INFORMATION BABY A Infant Suction: None ASSESSMENT BABY A Skin to Skin Time (min): N/A BABY B INFORMATION : N/A
--- NOTE | 2020-08-19 01:07 | Birth Certificate Data ---
Cert Data Datetime Report Generated by CPN: 08/19/2020 01:07 CERTIFICATE DATA 47a. Care: Yes (08/14/2020 18:05:Francesca Arellano RN) 48a. Number of Prev Live Births: 1 (08/14/2020 18:05:Francesca Arellano RN) 48b. Now Livin (08/14/2020 18:05:Francesca Arellano RN) 48c. Live Births Now : 0 (08/14/2020 18:05:QS system process) RISK FACTORS IN THIS 49c. Previous Births: 1 (08/14/2020 18:05:Francesca Arellano RN) 49f. Previous Cesareans: 0 (08/14/2020 18:05:Lester Levy, RN) Infections Present/Treated Results this Hospital Visit: NONREACTIVE (08/14/2020 16:26:QS system process) 53h. Mother Tested for HBsAG: Yes (08/14/2020 18:05:Lester Levy, RN) Onset of Labor 56a. PROM >12 Hrs: 0.02 (08/14/2020 18:05:QS system process) 57a. Induction of Labor: N/A (08/14/2020 18:05:Lester Levy RN) 57c. Non-Vertex Presentation A: Vertex (08/14/2020 18:05:Lester Levy RN) 57d. Steroids - Lung Mat: None (08/14/2020 18:05:Lester Levy RN) 57d. Steroids - Lung Mat: Not Applicable (08/14/2020 18:05:Lester Levy RN) 57g. Moderate/Heavy Meconium: Bloody (08/14/2020 18:05:Lester Levy RN) 57h. Intolerance of Labor: Abruptio Placenta (08/14/2020 18:05:Lester Levy RN) 57i. Epidural/Spinal Anesthesia: None (08/14/2020 18:05:Lester Levy RN) Method of Delivery 58a. Forceps - Unsuccessful A: N/A (08/14/2020 18:05:Lester Levy RN) 58b. Vacuum - Unsuccessful A: N/A (08/14/2020 18:05:Lester Levy RN) 58c. Presentation at 58c. Presentation at - A : Vertex (08/14/2020 18:05:Lester Levy RN) 58c. Presentation at - A : N/A (08/14/2020 18:05:Lester Levy RN) 58c. Presentation at - A : Cephalic (08/14/2020 18:05:Lester Levy RN) Final Route and Method of Del 58d. Baby A Route/Delivery: (08/14/2020 18:05:Lester Levy RN) 58e. Trial of Labor Attempted: No (08/14/2020 18:05:Lester Levy RN) 58e. Trial of Labor Attempted A: N/A (08/14/2020 18:05:Lester Levy RN) 58e. Trial of Labor Attempted B: N/A (08/14/2020 18:05:Lester Levy RN) Maternal Morbidity 59b. 3rd or 4th Degree Lacs: None (08/14/2020 18:05:Lester Levy RN) 59b. 3rd or 4th Degree Lacs: N/A (08/14/2020 18:05:Lester Levy RN) 61. GA at Delivery Baby A: 33.1 (08/14/2020 18:05:Lester Levy RN) : - <34 Weeks (08/14/2020 18:05:QS system process)
--- NOTE | 2020-08-23 08:26 | PDOC DISCHARGE SUMMARY ---
Impression - Admit/DC Date/PCP Admission Date/Primary Care Provider: 08/14/20 15:56 MAGAN ORDONEZ MD Discharge Date: 08/15/20 - Discharge Diagnosis (1) Chorioamnionitis in third trimester Is this a current diagnosis for this admission?: Yes - Additional Information Resuscitation Status: Full Code Discharge Diet: As Tolerated Discharge Activity: Activity As Tolerated - agree with pathology report of chorioamnionitis Referrals: MAGAN ORDONEZ MD [Primary Care Provider] - Home Medications: No122/Iron/Folic Acid [ Multi Tablet] 1 each PO DAILY 08/14/20 History of Present Illiness History of Present Illness: KRISTAL HOOKER is a 30 year old female Hospital Course Hospital Course: 30 year old female who was 32 weeks and presented to [place] labor and delivery with vaginal bleeding and pain. The patient was found to have an abruption and an emergency was performed by Dr. Browning. The patient began to hemorrhage post operatively and was transferred to the ICU. The patient was stablized in the ICU and the KOSHER DIETARY SERVICE SUPERVISOR team felt it best that she be transferred to [facility] and Dr. Browning arranged the transfer with an accepting physician there. The patient was transferred at 2223 by ground transport. Physical Exam - Physical Exam Vital Signs: Temp Pulse Resp BP Pulse Ox 134 H 22 H 119/82 100 08/14/20 18:39 08/14/20 22:13 08/14/20 22:01 08/14/20 22:01 Results Laboratory Results: WBC 18.8 10^3/uL (4.0-10.5) H 08/14/20 20:15 RBC 4.15 10^6/uL (3.72-5.28) 08/14/20 20:15 Hgb 12.5 g/dL (12.0-15.5) 08/14/20 20:15 Hct 36.7 % (36.0-47.0) 08/14/20 20:15 MCV 88 fl (80-97) 08/14/20 20:15 MCH 30.1 pg (27.0-33.4) 08/14/20 20:15 MCHC 34.1 g/dL (32.0-36.0) 08/14/20 20:15 RDW 14.3 % (11.5-14.0) H 08/14/20 20:15 Plt Count 123 10^3/uL (150-450) L 08/14/20 20:15 Lymph % (Auto) Not Reportable 08/14/20 20:15 [place] % (Auto) Not Reportable 08/14/20 20:15 Eos % (Auto) Not Reportable 08/14/20 20:15 Baso % (Auto) Not Reportable 08/14/20 20:15 Absolute Neuts (auto) Not Reportable 08/14/20 20:15 Absolute Lymphs (auto) Not Reportable 08/14/20 20:15 Absolute Monos (auto) Not Reportable 08/14/20 20:15 Absolute Eos (auto) Not Reportable 08/14/20 20:15 Absolute Basos (auto) Not Reportable 08/14/20 20:15 Total Counted 100 08/14/20 20:15 Seg Neutrophils % Not Reportable 08/14/20 20:15 Seg Neuts % (Manual) 82 % (42-78) H 08/14/20 20:15 Band Neutrophils % 5 % (3-5) 08/14/20 20:15 Lymphocytes % (Manual) 7 % (13-45) L 08/14/20 20:15 Monocytes % (Manual) 6 % (3-13) 08/14/20 20:15 Eosinophils % (Manual) 0 % (0-6) 08/14/20 20:15 Basophils % (Manual) 0 % (0-2) 08/14/20 20:15 Abs Neuts (Manual) 16.4 10^3/uL (1.7-8.2) H 08/14/20 20:15 Abs Lymphs (Manual) 1.3 10^3/uL (0.5-4.7) 08/14/20 20:15 Abs Monocytes (Manual) 1.1 10^3/uL (0.1-1.4) 08/14/20 20:15 Absolute Eos (Manual) 0.0 10^3/uL (0.0-0.6) 08/14/20 20:15 Abs Basophils (Manual) 0.0 10^3/uL (0.0-0.2) 08/14/20 20:15 Nucleated RBCs 1 /100 WBC (0) 08/14/20 19:33 Toxic Granulation SLIGHT 08/14/20 17:25 Platelet Estimate Cancelled 08/14/20 16:26 Platelet Comment DECREASED 08/14/20 20:15 Polychromasia SLIGHT 08/14/20 19:33 Poikilocytosis SLIGHT 08/14/20 19:33 Anisocytosis SLIGHT 08/14/20 20:15 Tear Drop Cells SLIGHT 08/14/20 20:15 Ovalocytes SLIGHT 08/14/20 20:15 Sofy Cells 1+ 08/14/20 20:15 Schistocytes SLIGHT 08/14/20 17:25 PT 15.6 SEC (11.4-15.4) H D 08/14/20 20:40 INR 1.23 08/14/20 20:40 INR (Anticoag Therapy) Cancelled 08/14/20 16:26 APTT 82.7 SEC (23.5-35.8) H 08/14/20 20:40 Fibrinogen 155 mg/dL (209-497) L 08/14/20 20:15 D-Dimer > 20.00 ug/mL (0.00-0.50) H* 08/14/20 20:15 Carbonic Acid 1.17 mmol/L (1.05-1.35) 08/14/20 19:14 HCO3/H2CO3 Ratio 7:1 08/14/20 19:14 ABG pH 6.99 (7.35-7.45) L* 08/14/20 19:14 ABG pCO2 38.9 mmHg (35-45) 08/14/20 19:14 ABG pO2 34.0 mmHg (80-100) L* 08/14/20 19:14 ABG HCO3 9.1 mmol/L (20-24) L 08/14/20 19:14 ABG Total CO2 10.3 mmol/L (21-25) L 08/14/20 19:14 ABG O2 Saturation 39.9 % (94-98) L 08/14/20 19:14 ABG Base Excess -21.1 mmol/L 08/14/20 19:14 VBG pH Cancelled 08/14/20 20:15 VBG pCO2 Cancelled 08/14/20 20:15 VBG HCO3 Cancelled 08/14/20 20:15 VBG Base Excess Cancelled 08/14/20 20:15 FiO2 6L 08/14/20 19:14 Sodium 140.5 mmol/L (137-145) 08/14/20 20:15 Potassium 5.8 mmol/L (3.6-5.0) H D 08/14/20 20:15 Chloride 108 mmol/L (98-107) H 08/14/20 20:15 Carbon Dioxide 20 mmol/L (22-30) L 08/14/20 20:15 Anion Gap 13 (5-19) 08/14/20 20:15 BUN 14 mg/dL (7-20) 08/14/20 20:15 Creatinine 1.09 mg/dL (0.52-1.25) 08/14/20 20:15 Est GFR ( Amer) > 60 (>60) 08/14/20 20:15 Est GFR (MDRD) Non-Af 59 (>60) L 08/14/20 20:15 Glucose 172 mg/dL (75-110) H 08/14/20 20:15 Uric Acid 5.1 mg/dL (2.5-6.2) 08/14/20 16:26 Calcium 8.1 mg/dL (8.4-10.2) L 08/14/20 20:15 Magnesium 1.5 mg/dL (1.6-2.3) L 08/14/20 20:15 Total Bilirubin 4.6 mg/dL (0.2-1.3) H 08/14/20 20:15 Direct Bilirubin 2.5 mg/dL (0.0-0.4) H 08/14/20 20:15 Neonat Total Bilirubin Not Reportable 08/14/20 20:15 Neonat Direct Bilirubin Not Reportable 08/14/20 20:15 Neonat Indirect Bili Not Reportable 08/14/20 20:15 AST 60 U/L (14-36) H 08/14/20 20:15 ALT 28 U/L (<35) 08/14/20 20:15 Alkaline Phosphatase 81 U/L (38-126) 08/14/20 20:15 Lactate Dehydrogenase 1278 U/L (120-246) H 08/14/20 16:26 Total Protein 5.5 g/dL (6.3-8.2) L 08/14/20 20:15 Albumin 3.1 g/dL (3.5-5.0) L 08/14/20 20:15 Urine Color RED 08/14/20 16:25 Urine Appearance CLOUDY 08/14/20 16:25 Urine pH 5.0 (5.0-9.0) 08/14/20 16:25 Ur Specific [place] 1.027 08/14/20 16:25 Urine Protein 100 mg/dL (NEGATIVE) H 08/14/20 16:25 Urine Glucose (UA) 50 mg/dL (NEGATIVE) H 08/14/20 16:25 Urine Ketones NEGATIVE mg/dL (NEGATIVE) 08/14/20 16:25 Urine Blood LARGE (NEGATIVE) H 08/14/20 16:25 Urine Nitrite NEGATIVE (NEGATIVE) 08/14/20 16:25 Urine Bilirubin NEGATIVE (NEGATIVE) 08/14/20 16:25 Urine Urobilinogen NEGATIVE mg/dL (<2.0) 08/14/20 16:25 Ur Leukocyte Esterase NEGATIVE (NEGATIVE) 08/14/20 16:25 Urine Ascorbic Acid NEGATIVE (NEGATIVE) 08/14/20 16:25 Urine Opiates Screen NEGATIVE 08/14/20 16:25 Urine Methadone Screen NEGATIVE 08/14/20 16:25 Ur Barbiturates Screen UNCONFIRMED POSITIVE 08/14/20 16:25 Ur Phencyclidine Scrn NEGATIVE 08/14/20 16:25 Ur Amphetamines Screen NEGATIVE 08/14/20 16:25 U Benzodiazepines Scrn NEGATIVE 08/14/20 16:25 Urine Cocaine Screen NEGATIVE 08/14/20 16:25 U Marijuana (THC) Screen UNCONFIRMED POSITIVE 08/14/20 16:25 RPR NONREACTIVE (NONREACTIVE) 08/14/20 16:26 Slides for Path Review Cancelled 08/14/20 16:26 Blood Type A POSITIVE 08/14/20 16:26 Blood Type Confirm A POSITIVE 08/14/20 16:27 Antibody Screen NEGATIVE 08/14/20 16:26 Crossmatch See Detail 08/14/20 16:26 Mass Transfus Initiated MTP INITIATED 08/14/20 18:14 Mass Transfus Discontin MTP DISCONTINUED 08/14/20 18:14 Impressions: Chest X-Ray 08/14/20 00:00 IMPRESSION: Placement of a right IJ central venous line which extends into the right atrium. This needs to be withdrawn at least 2 to 3 cm for more optimal positioning Obstetrics Ultrasound 08/14/20 00:00 IMPRESSION: No heart tones could be identified. Findings are consistent with demise. Referring physician was aware of the findings. Trimester of : Third trimester - 28 weeks to delivery. Stroke Is this a Stroke Patient?: No Acute Heart Failure Is this a Heart Failure Patient?: No
== END 2020-08-14 22:23 | disposition short-term general hospital (02) | DRG 786 ==
LOC: LC 15:53 → LR 15:56 → ICU 18:30
PROVIDERS: ADMIT Obstetrics & Gynecology; ATTEND Anesthesiology
PROC: 10D00Z1 Extraction of Products of Conception, Low, Open Approach (ICD-10-PCS; principal; 2020-08-14)
PROC: 30233N1 Transfusion of Nonautologous Red Blood Cells into Peripheral Vein, Percutaneous Approach (ICD-10-PCS; 2020-08-14)
PROC: 02H633Z Insertion of Infusion Device into Right Atrium, Percutaneous Approach (ICD-10-PCS; 2020-08-14)
DX: O36.8330 Maternal care for abnormalities of the fetal heart rate or rhythm, third trimester, not applicable or unspecified (principal); O45.023 Premature separation of placenta with disseminated intravascular coagulation, third trimester; O41.1230 Chorioamnionitis, third trimester, not applicable or unspecified; O69.81X0 Labor and delivery complicated by cord around neck, without compression, not applicable or unspecified; Z03.818 Encounter for observation for suspected exposure to other biological agents ruled out; Z88.8 Allergy status to other drugs, medicaments and biological substances; Z3A.32 32 weeks gestation of pregnancy; Z37.1 Single stillbirth
CPT/HCPCS: 01961; 36415; 36430; 71045; 76815; 80053; 80307; 81005; 82803; 83615; 83735; 84550; 85025; 85379; 85384; 85610; 85730; 86592; 86850; 86900; 86901; 86920; 87070; 88307; 94760; 99140; J0610; J0330; J0690; J1885; J2210; J2370; J2405; J2590; J2704; J3010; J3475; J3490; J7030; J7060; P9016; P9017; P9035

== ENCOUNTER 2020-09-02 10:15 | Emergency (ER) | payer MEDICAID ==
[2020-09-02] MEDS ORDERED: DIPHENHYDRAMINE HCL 50 MG/ML VIAL IV ONE (13:46)
[2020-09-02] MEDS ORDERED: PROCHLORPERAZINE EDISYLATE INJ 10 MG/2 ML VIAL IM ONE (13:46)
[2020-09-02] MEDS ORDERED: KETOROLAC TROMETHAMINE INJ/PF 30 MG/1 ML SDV IV ONE (13:47)
[2020-09-02] MEDS ORDERED: NORMAL SALINE 1000 ML 1,000 ML IV ONE (13:47)
[2020-09-02] MEDS ORDERED: PROCHLORPERAZINE EDISYLATE INJ 10 MG/2 ML VIAL IV ONE (13:51)
--- NOTE | 2020-09-02 13:57 | ER Document Report ---
Entered by ALONSO REYES SCRIBE 09/02/20 1329 Acting as scribe for:MARIAM REDDY MD ED General - General Chief Complaint: Headache Stated Complaint: HEADACHE Time Seen by Provider: 09/02/20 13:26 Mode of Arrival: Ambulatory Information source: Patient Notes: This 30-year-old female patient presents to the emergency department today with complaints of a headache that began at 9 PM last night. Patient states this headache is similar to her previous headaches. She mentions that it began behind her left eye but it is now behind her right eye. Patient was recently discharged from [facility] recently after an abrupted placenta, she was discharged on pain medicine but states she took her last oxycodone 2 days ago. Patient is nauseated but she denies fevers, vomiting, or cough. - Related Data Allergies/Adverse Reactions: doxycycline Allergy (Verified 08/14/20 19:57) Home Medications: labetalol, ibuprofen, tylenol Past Medical History - General Information source: Patient - Social History Smoking Status: Never Smoker Cigarette use (# per day): No Chew tobacco use (# tins/day): No Frequency of alcohol use: None Drug Abuse: None Lives with: Family Family History: Reviewed & Not Pertinent - Past Medical History Cardiac Medical History: Reports: Hx Hypertension - with Past Surgical History: Reports: Hx Section, Hx Gynecologic Surgery - Abrupted placenta Review of Systems - Review of Systems Constitutional: denies: Fever EENT: No symptoms reported Cardiovascular: No symptoms reported Respiratory: denies: Cough Gastrointestinal: See HPI, Nausea. denies: Vomiting Genitourinary: No symptoms reported Female Genitourinary: No symptoms reported Musculoskeletal: No symptoms reported Skin: No symptoms reported Hematologic/Lymphatic: No symptoms reported Neurological/Psychological: See HPI, Headaches -: Yes All other systems reviewed and negative Physical Exam - Vital signs Vitals: Temp Pulse Resp BP Pulse Ox 98.5 F 77 18 137/86 H 100 09/02/20 10:19 09/02/20 10:19 09/02/20 10:19 09/02/20 10:19 09/02/20 10:19 - Notes Notes: Physical Exam: General: Alert, appears well, thin. Positive photophobia. HEENT: Normocephalic. Atraumatic. PERRL. Extraocular movements intact. Oropharynx clear. No frontal, maxillary, or sphenoid sinus tenderness to percussion. Eye globes are soft and non-tender. To temporal artery tenderness to palpation. Neck: Supple. Non-tender. No posterior cervical musculature tenderness to palpation. Respiratory: No respiratory distress. Clear and equal breath sounds bilaterally. Cardiovascular: Regular rate and rhythm. Abdominal: Normal Inspection. Non-tender. No distension. Normal Bowel Sounds. Back: No gross abnormalities. Extremities: Moves all four extremities. Upper extremities: Normal inspection. Normal ROM. Lower extremities: Normal inspection. No edema. Normal ROM. Neurological: Normal cognition. AAOx4. Normal speech. Psychological: Normal affect. Normal Mood. Skin: Warm. Dry. Normal color. Course - Re-evaluation Re-evalutation: 09/02/20 16:27 The patient's headache is gone and she feels much better now. She is hypo- calcemic secondary to hypoalbuminemia. This was developed due to the hemorrhage she experienced last month. She is also hypokalemic, she states she does like bananas. She is encouraged to eat bananas for the next few days, and increase protein in her diet such as cheeseburgers. - Vital Signs Vital signs: Temp Pulse Resp BP Pulse Ox 98.5 F 77 18 137/86 H 100 09/02/20 11:03 09/02/20 10:19 09/02/20 10:19 09/02/20 10:19 09/02/20 10:19 - Laboratory Result Diagrams: 09/02/20 14:57 09/02/20 14:57 Laboratory results interpreted by me: 09/02/20 14:57 Potassium 3.2 L Chloride 114 H Carbon Dioxide 19 L Glucose 60 L Calcium 6.8 L* Total Protein 5.9 L Albumin 2.9 L Discharge - Discharge Clinical Impression: Tension headache, Hypokalemia, Hypoalbuminemia, Hypocalcemia Condition: Stable Disposition: HOME, SELF-CARE Additional Instructions: Tension Headache Your problem has been diagnosed as muscle tension headache. This very common type of headache occurs because of tightness in the muscles of the head and neck. The cause may be neck or jaw joint problems, but most commonly the cause is emotional stress. The headache may last hours or days. The treatment of uncomplicated tension headaches is rest and pain medication. Often, the newer antiinflammatory pain medications are prescribed, as these also decrease the irritability of the painful tissues. Muscle relaxers, cold packs, or warm packs are sometimes helpful. Anti-anxiety me dication or narcotics are sometimes needed temporarily, but are best avoided in the long run. Your doctor has evaluated your headache problem, and finds no evidence of a serious health problem as a cause for the headache. If your headache becomes more severe, or if new symptoms develop (such as fever, stiff neck, vomiting, or decreasing alertness) you should be re-examined by the physician. I personally performed the services described in the documentation, reviewed and edited the documentation which was dictated to the scribe in my presence, and it accurately records my words and actions. Hypokalemia You have an abnormally decreased level of serum potassium. Hypokalemia may cause weakness, fatigue, or heart rhythm abnormalities. Sometimes there are no symptoms at all. Usually, low serum potassium is due to taking diuretics (water pills). It can also be due to excessive vomiting or diarrhea. If no obvious cause is evident, further evaluation will be necessary. Treatment is usually oral potassium supplements. Take these exactly as prescribed. You may also want to select foods which are naturally high in potassium -- fruits (such as bananas, cantaloupe, grapes, oranges, prunes, tomatoes), fresh vegetables (potatoes, spinach, beans, peas), orange or tomato juice, tomato pasta sauce, milk, fish (halibut, tuna, salmon, alexey) A follow-up blood test is usually performed to assure that the potassium is returning to normal. Call the physician if you suffer severe weakness, muscle twitching or cramping, palpitations (pounding or irregular heartbeat), or any other new or alarming symptoms. Hypocalcemia Your serum calcium levels measured were low but this is due to low albumin in your bloodstream. Low albumin is most likely due to the hemorrhage you experience, and will improve over time if you increase protein in your diet. Increasing calcium in your diet for now would probably be helpful. Increase potassium in your diet for the next several days. A few bananas every day are an easy way to do this. You can increase the albumin and protein in your bloodstream by eating a healthy protein rich diet and taking a multivitamin for the next few weeks. Drinking milk, eating cheese, and other sources of calcium in your diet will help improve your calcium levels in the short-term. Take Tylenol 1000 mg, ibuprofen 600 mg, and Benadryl 25 mg every 6 hours as needed for tension headache. Follow-up with your primary care provider if not improving. RETURN TO THE EMERGENCY ROOM IF ANY NEW OR WORSENING SYMPTOMS. I personally performed the services described in the documentation, reviewed and edited the documentation which was dictated to the scribe in my presence, and it accurately records my words and actions.
[2020-09-02 15:18] LABS: ABSOLUTE EOSINOPHILS # (AUTO) 0.1 10^3/uL (0.0-0.6); ABSOLUTE MONOCYTES (AUTO) 0.6 10^3/uL (0.1-1.4); HEMOGLOBIN 13.8 g/dL (12.0-15.5); TOTAL CELLS COUNTED % (AUTO) 100 %
[2020-09-02 15:26] LABS: ABSOLUTE LYMPHOCYTES (AUTO) 1.2 10^3/uL (0.5-4.7); ABSOLUTE NEUT (AUTO) 4.2 10^3/uL (1.7-8.2); BASOPHILS % (AUTO) 0.4 % (0-2); EOSINOPHILS % (AUTO) 1.2 % (0-6); HEMATOCRIT 38.6 % (36.0-47.0); LYMPHOCYTES % (AUTO) 19.2 % (13-45); MEAN CORPUSCULAR HEMOGLOBIN 31.7 pg (27.0-33.4); MEAN CORPUSCULAR HGB CONC 35.8 g/dL (32.0-36.0); MEAN CORPUSCULAR VOLUME 89 fl (80-97); MONOCYTES % (AUTO) 9.6 % (3-13); PLATELET COUNT 266 10^3/uL (150-450); RED BLOOD COUNT 4.36 10^6/uL (3.72-5.28); RED CELL DISTRIBUTION WIDTH 13.7 % (11.5-14.0); SEGMENTED NEUTROPHILS % (AUTO) 69.6 % (42-78); WHITE BLOOD COUNT 6.1 10^3/uL (4.0-10.5)
[2020-09-02 15:41] LABS: ALBUMIN 2.9 g/dL (3.5-5.0); ALKALINE PHOSPHATASE 57 U/L (38-126); ANION GAP 6 (5-19); ASPARTATE AMINO TRANSFERASE 20 U/L (14-36); BILIRUBIN,DIRECT 0.2 mg/dL (0.0-0.4); BILIRUBIN,TOTAL 0.6 mg/dL (0.2-1.3); BLOOD UREA NITROGEN 9 mg/dL (7-20); CARBON DIOXIDE 19 mmol/L (22-30); CHLORIDE 114 mmol/L (98-107); POTASSIUM 3.2 mmol/L (3.6-5.0); TOTAL PROTEIN 5.9 g/dL (6.3-8.2)
[2020-09-02 15:42] LABS: GLUCOSE 60 mg/dL (75-110)
[2020-09-02 15:50] LABS: CALCIUM 6.8 mg/dL (8.4-10.2)
[2020-09-02 17:08] VITALS: BP 120/76
== END 2020-09-02 17:08 | disposition home or self-care (01) ==
LOC: ER 10:15
DX: G44.209 Tension-type headache, unspecified, not intractable (principal); E87.6 Hypokalemia; E88.09 Other disorders of plasma-protein metabolism, not elsewhere classified; E83.51 Hypocalcemia; R11.0 Nausea; Z88.1 Allergy status to other antibiotic agents; Z79.899 Other long term (current) drug therapy
CPT/HCPCS: 96376; 99284; 96361; 96374; 96375; 36415; 84703; 85025; 80053; J1200; J1885; J0780; J7030